=== PATIENT | female | born 1985 | race Two or more races ===

== ENCOUNTER 2019-08-22 12:48 | Inpatient (IN) | payer MEDICAID ==
[~2019-08-22] VITALS: Ht 172.7 cm; Wt 107.0 kg
[~2019-08-22 12:48] MED LIST: MEDR400I IM
[2019-08-22] MEDS ORDERED: SODIUM CHLORIDE 0.9% 500 ML IV ONE (12:53)
[2019-08-22] MEDS ORDERED: MECLIZINE HCL 25 MG TAB PO ONE (13:00)
[2019-08-22 13:35] LABS: Basophils # (auto) 0.1 uL; Basophils % (auto) 0.7 % (0.0-2.0); Eosinophils # (auto) 0.2 uL; Eosinophils % (auto) 2.1 % (0.0-7.0); Hematocrit 43.2 % (36.0-46.0); Hemoglobin 14.7 g/dL (12.2-16.2); Lymphocytes # (auto) 1.4 uL; Lymphocytes % (auto) 12.2 % (10.0-50.0); Mean Corpuscular Hemoglobin 29.6 pg (28.0-32.0); Mean Corpuscular Volume 86.9 fL (80.0-100.0); Monocytes # (auto) 0.6 uL; Monocytes % (auto) 5.3 % (0.0-12.0); Neutrophils % (auto) 79.7 % (37.0-80.0); Nucleated Red Blood Cells % 0.2 %; Platelet Count (auto) 322 10^3/uL (140-450); Red Blood Cells 4.97 10^6/uL (4.0-5.20); Red Cell Distribution Width 13.2 % (11.8-14.3); White Blood Cell 11.3 10^3/uL (4.4-10.8)
[2019-08-22 13:53] LABS: Albumin 3.6 g/dL (3.4-5.0); Anion Gap 10 (5-15); Blood Urea Nitrogen 7 mg/dL (7-18); Calcium 8.5 mg/dL (8.5-10.1); Carbon Dioxide 20 mmol/L (21-32); Chloride 109 mmol/L (98-107); Glucose 140 mg/dL (74-106); Magnesium 1.8 mg/dL (1.6-2.6); Potassium 3.4 mmol/L (3.5-5.1); Sodium 139 mmol/L (136-145)
[2019-08-22 14:02] LABS: Alanine Aminotransferase 23 U/L (13-56); Alkaline Phosphatase 57 U/L (45-117); Aspartate Aminotransferase 18 U/L (15-37); BUN/Creatinine Ratio 7.3; Bilirubin, Total 0.5 mg/dL (0.2-1.0); GFR African American 85 mL/min; GFR Non-African American 70 mL/min; Total Protein 7.7 g/dL (6.4-8.2)
[2019-08-22] MEDS ORDERED: LORazepam 2MG/ML-1ML VIAL IV ONE (15:30)
[2019-08-22] MEDS ORDERED: ONDANSETRON HCL 4 MG/2 ML VIAL ONE (16:40)
[2019-08-22] MEDS ORDERED: ONDANSETRON HCL 4 MG/2 ML VIAL IV ONE (16:45)
[2019-08-22] MEDS ORDERED: SOD CHL 0.9%/ KCL 20MEQ 1,000 ML IV ONE (17:45)
[2019-08-22] MEDS ORDERED: MORPHINE SULF INJ 2 MG/ML SYRINGE 1ML IV PRN ×2 (17:45)
[2019-08-22] MEDS ORDERED: ACETAMINOPHEN 500 MG TAB PO PRN (17:45)
[2019-08-22] MEDS ORDERED: NITROGLYCERIN 0.4 MG SL TAB SL PRN (17:45)
[2019-08-22] MEDS ORDERED: MECLIZINE HCL 25 MG TAB PO PRN (17:45)
[2019-08-22] MEDS ORDERED: HYDROcodone-ACET 5/325MG TAB PO PRN (17:45)
[2019-08-22] MEDS ORDERED: ONDANSETRON HCL 4 MG/2 ML VIAL IV PRN (17:45)
--- NOTE | 2019-08-22 18:28 | NUR ---
Telemetry admit from GURINDER PARRY admitted to Telemetry unit after SBAR received. Patient oriented to Pam Nolasco primary RN, unit, room, bed, and unit policies regarding patient care and visiting hours. Patient now on continuous telemetry monitoring. Patient weighed by bed scale and encouraged to call if they need something. All questions and concerns addressed, patient verbalized understanding. Instructed patient on POC, fall precautions and to call for assistance as needed. Patient verbalized understanding. Fall precautions in place with bed in lowest locked position with call light within reach.
--- NOTE | 2019-08-22 19:03 | NUR ---
Closing note Patient resting in bed with even and unlabored respirations, no distress noted. Fall precautions in place with bed in lowest locked position with call light within reach. Bed alarm on for safety.
--- NOTE | 2019-08-22 19:15 | NUR ---
Care endorsed to MINA Person.
--- NOTE | 2019-08-22 19:25 | NUR ---
RECEIVED PATIENT, AWAKE, ALERT, ORIENTED X4. NO S/S OF RESPIRATORY DISTRESS, DENIES ANY PAIN. ORIENTED ON PLAN OF CARE. BED IS LOCKED AND IN LOWEST POSITION, SIDE RAILS UP X2, CALL LIGHT WITHIN REACH. WILL CONTINUE TO MONITOR
[2019-08-22 19:30] VITALS: BP 132/81
[2019-08-22 19:33] LABS: Urine Bacteria MOD /hpf (None Seen); Urine Blood Negative /uL (Negative); Urine Mucus FEW (None Seen); Urine Specific Gravity 1.017 (1.001-1.035); Urine WBC 1 /hpf (0 - 5)
[2019-08-22] MEDS ORDERED: LORazepam 2MG/ML-1ML VIAL IV PRN (20:00)
[2019-08-22] MEDS ORDERED: LORazepam 0.5 MG TAB PO PRN (20:00)
[2019-08-22 22:00] VITALS: BP 134/85
[2019-08-23 05:00] VITALS: BP 116/63
--- NOTE | 2019-08-23 07:05 | NUR ---
Opening Shift Note Assumed care of patient, awake and alert. No S/S of distress/SOB or pain. Instructed on POC and to call for assist PRN, will continue to monitor for changes Q1hr and PRN. Bed in lowest locked position, call light within reach.
--- NOTE | 2019-08-23 07:15 | NUR ---
CARE ENDORSED TO AM SHIFT RN
[2019-08-23 08:02] VITALS: BP 126/73
[2019-08-23 09:00] VITALS: BP 126/73
[2019-08-23] MEDS ORDERED: INFLUENZA QUAD 2019-2020 0.5ml SYRG IM ONE (09:00)
--- NOTE | 2019-08-23 09:34 | NUR ---
meteorological technician at bedside
[2019-08-23 13:00] VITALS: BP 117/74
[2019-08-23] MEDS ORDERED: ASPirin-EC 81 mg tab PO ONE (14:15)
[2019-08-23] MEDS ORDERED: MAGNESIUM SULFATE 1GM/100ML 100 ML IV ONE (14:15)
--- NOTE | 2019-08-23 14:21 | NUR ---
RE: MRI results This RN was verbally notified by Dr. Russell of the patient's MRI results positive for an acute stroke. informed this RN that Dr. Grigsby was notified by her. Orders received and read back to verify. Dr. Russell informed patient of MRI results.
--- NOTE | 2019-08-23 14:37 | NUR ---
US tech at bedside for carotid US per MD order.
[2019-08-23 16:58] VITALS: BP 119/67
--- NOTE | 2019-08-23 18:43 | NUR ---
Closing note patient resting in bed with even and unlabored respirations, no distress noted. Speech is clear. Facial features are even with no drooping noted. Bilateral upper and lower extremity strength equal, mild weakness noted. Fall precautions in place with bed in lowest locked position, call light within reach. Visitors at bedside.
--- NOTE | 2019-08-23 19:05 | NUR ---
Care endorsed to MINA Person.
[2019-08-23 19:47] LABS: CRP High Sensitivity 0.16 mg/dL (< 0.3)
[2019-08-23 20:19] LABS: Alcohol, Urine < 3.0 mg/dL (0-5); Amphetamine Screen, Urine NEGATIVE (NEGATIVE); Barbiturate Scree,Urine NEGATIVE (NEGATIVE); Benzodiazephine Screen, Urine NEGATIVE (NEGATIVE); Cannabinoid Screen, Urine NEGATIVE (NEGATIVE); Cocaine Screen, Urine NEGATIVE (NEGATIVE); Opiate Scree,Urine NEGATIVE (NEGATIVE); Phencyclidine Screen, Urine NEGATIVE (NEGATIVE)
[2019-08-23] MEDS: ATORVASTATIN 20 MG TAB PO SCH (21:39)
[2019-08-24 05:00] VITALS: BP_SYST 117; BP_SYST 123; BP_DIAS 40; BP_DIAS 79
[2019-08-24 07:06] LABS: Basophils # (auto) 0.1 uL; Basophils % (auto) 0.7 % (0.0-2.0); Eosinophils # (auto) 0.2 uL; Eosinophils % (auto) 1.7 % (0.0-7.0); Hematocrit 42.7 % (36.0-46.0); Hemoglobin 14.6 g/dL (12.2-16.2); Lymphocytes # (auto) 1.8 uL; Lymphocytes % (auto) 17.2 % (10.0-50.0); Mean Corpuscular Hgb Conc. 34.1 g/dL (32.0-36.0); Monocytes # (auto) 0.8 uL; Monocytes % (auto) 7.5 % (0.0-12.0); Neutrophils # (auto) 7.8 uL; Neutrophils % (auto) 72.9 % (37.0-80.0); Nucleated Red Blood Cells % 0.1 %; Platelet Count (auto) 307 10^3/uL (140-450); Red Blood Cells 4.85 10^6/uL (4.0-5.20); Red Cell Distribution Width 13.4 % (11.8-14.3); White Blood Cell 10.7 10^3/uL (4.4-10.8)
--- NOTE | 2019-08-24 07:15 | NUR ---
CARE ENDORSED TO AM SHIFT RN
[2019-08-24 07:23] LABS: BUN/Creatinine Ratio 13.5; Calcium 8.7 mg/dL (8.5-10.1); Magnesium 2.3 mg/dL (1.6-2.6); Potassium 3.8 mmol/L (3.5-5.1)
[2019-08-24 07:58] LABS: INR 1.02 (0.9-1.15); Partial Thromboplastin Time 24.2 sec (23.64-32.05)
[2019-08-24 08:58] VITALS: BP 125/75
--- NOTE | 2019-08-24 09:00 | NUR ---
PT AMBULATED TO RESTROOM WITH . PT TOLERATED ACTIVITY FAIRLY.
--- NOTE | 2019-08-24 09:31 | NUR ---
assessment Patient is a 34 year old female who is alert and oriented. Patients cognitive abilities are intact. Prior to admission patient lived home with family and functioned independently. Patient informed me she is able to care for her own ADLs. Per patient she will return home to her prior living arrangements post discharge and family will transport her home. Patient has been admitted for CVA. Patient is having right side weakness. Patient has no DME at home. Patient will benefit from home health for PT and a fww. Patient is aware of her diagnosis. Patient is in good spirits. Patient has good family and social support. I informed patient she has a right to speak to a clinical social work therapist regarding all care. I informed patient she has a right to participate in any and all discharge planning. Patient does not have a POA and advanced directive. I have offered patient information on POA and advanced directives. I informed the patient the advantages and benefits of having an Advanced Directive. Patient verbalized understanding and agreed to discharge plan. Addendum: 08/25/19 at 0933 by Sarah SHEFFIELD Amended: Links added.
--- NOTE | 2019-08-24 09:44 | NUR ---
PT TAKEN TO ELECTRIFIER OPERATOR FOR PROCEDURE. NO S/S OF DISTRESS.
[2019-08-24] MEDS ORDERED: fentaNYL CITRATE 100 MCG/2 ML VL IV ONE (10:00)
[2019-08-24] MEDS ORDERED: MIDAZOLAM HCL 1MG/1ML-2 ML VIAL IV ONE (10:00)
[2019-08-24] MEDS ORDERED: LIDOCAINE VISCOUS 2% 15ML UD MT PRN (10:00)
--- NOTE | 2019-08-24 11:28 | NUR ---
PT BACK FROM LEGAL INVESTIGATOR, VIA BED. AWAKE, ALERT, NO S/S OF DISTRESS AT MOMENT. V/S: 97.6; 84; 18; 95% ON ROOM AIR,; 99/41 (67) ASYMPTOMATIC. PT REMAINS WITH SLIGHT DIZZINESS.
[2019-08-24] MEDS: ASPirin-EC 81 mg tab PO SCH (12:54)
[2019-08-24 13:00] VITALS: BP 128/75
[2019-08-24 16:58] VITALS: BP 128/83
--- NOTE | 2019-08-24 19:29 | NUR ---
Opening Shift Note Received report from day shift nurseScott. Patient awake, alert, and orientated x 4 with No S/S of distress/SOB or pain. family is at bedside. Instructed on POC and to call for assist PRN, will continue to monitor for changes Q1hr and PRN.
[2019-08-24] MEDS: SODIUM CHLORIDE 0.9% 1,000 ML IV SCH (21:45)
[2019-08-24 21:53] VITALS: BP 112/61
[2019-08-24] MEDS: ATORVASTATIN 20 MG TAB PO SCH (22:33)
[2019-08-25 05:29] VITALS: BP 105/60
--- NOTE | 2019-08-25 07:24 | NUR ---
closing notes endorsed care to day shift nurseYu.
--- NOTE | 2019-08-25 08:00 | NUR ---
Opening Shift Note Assumed care of patient, awake and alert sitting out in chair at bedside. No S/S of distress/SOB or pain. Instructed on POC and to call for assist PRN, will continue to monitor for changes Q1hr and PRN.
[2019-08-25 09:00] VITALS: BP 109/66
[2019-08-25] MEDS: SODIUM CHLORIDE 0.9% 1,000 ML IV SCH (09:48)
[2019-08-25] MEDS: ASPirin-EC 81 mg tab PO SCH (09:48)
--- NOTE | 2019-08-25 10:48 | NUR ---
Off Unit Patient left unit in wheelchair for Radiology department.
--- NOTE | 2019-08-25 11:03 | NUR ---
On Unit Patient returned to unit from radiology department.
[2019-08-25 13:00] VITALS: BP 110/67
[2019-08-25] MEDS ORDERED: ATO40T PO (13:29)
[2019-08-25] MEDS ORDERED: ASPI-378 PO (13:29)
[2019-08-25 14:45] VITALS: BP 110/67
--- NOTE | 2019-08-25 15:33 | NUR ---
Patient is discharged, awaiting on DME - Walker to be delivered at bedside.
--- NOTE | 2019-08-25 15:56 | NUR ---
D/C Planning Per Consult for Home Health for Physical Therapy and FWW. Contacted [facility] Ph:( [phone]) Fax:) faxed medical records. Per Kate from [facility] Pt has been accepted and service to start within 48hrs upon d/c day. . Contacted [facility] Ph:) Fax:) faxed medical records. Per Holly from [facility] authorization for home health is [id number] and for [facility] is [id number]. Contacted [facility] Ph:) Fax:) faxed medical records. Per Elba from [facility] referral has been received and FWW will be deliver to bedside at 17:00. Informed MINA Nicholas. Pt was given information regarding acceptance home health agency and FWW. Pt verbalize understanding d/c plan. Addendum: 08/25/19 at 1614 by CARLENE INGRAM Amended: Links added.
[2019-08-25 17:00] VITALS: BP 137/86
--- NOTE | 2019-08-25 17:15 | NUR ---
As per Rudy from [facility], front wheel walker will be delivered to patient's home this evening.
--- NOTE | 2019-08-25 18:00 | NUR ---
Sick Note Patient requesting sick note from work. Informed her that the hospitalist already left for today. She will call 08/26 to see if she can get note from hospitalist.
--- NOTE | 2019-08-25 18:05 | NUR ---
Discharge instructions given as ordered. Encourage to follow up with PMD as instructed. All questions and concerns addressed. Patient verbalized understanding. Medication reconciliation form completed and copy given to patient. IV removed with catheter intact and pressure dressing applied. Telemetry unit returned to ICU. Patient taken to vehicle via wheelchair with all personal belongings, accompanied by staff and family member. No distress noted at time of departure.
== END 2019-08-25 18:05 | disposition home health service (06) | DRG 45 ==
LOC: EDBD 12:48 → ER 12:50 → TELE 12:51 → TELE-CENTR 18:28
PROVIDERS: ADMIT Nurse Practitioner Acute Care; ATTEND Internal Medicine
PROC: B24BZZ4 Ultrasonography of Heart with Aorta, Transesophageal (ICD-10-PCS; principal; 2019-08-24)
DX: I63.541 Cerebral infarction due to unspecified occlusion or stenosis of right cerebellar artery (principal); R65.10 Systemic inflammatory response syndrome (SIRS) of non-infectious origin without acute organ dysfunction; E66.01 Morbid (severe) obesity due to excess calories; G81.94 Hemiplegia, unspecified affecting left nondominant side; R55 Syncope and collapse; E87.6 Hypokalemia; E78.5 Hyperlipidemia, unspecified; F41.9 Anxiety disorder, unspecified; Z80.6 Family history of leukemia; Z82.3 Family history of stroke; Z82.49 Family history of ischemic heart disease and other diseases of the circulatory system; Z90.710 Acquired absence of both cervix and uterus; Z83.3 Family history of diabetes mellitus; Z68.35 Body mass index [BMI] 35.0-35.9, adult
CPT/HCPCS: 36415; 70450; 70496; 70498; 70551; 80048; 80053; 80061; 80307; 81001; 81241; 83036; 83735; 84443; 84484; 85025; 85301; 85305; 85306; 85610; 85613; 85652; 85670; 85705; 85730; 85732; 86141; 93005; 93306; 93312; 93886; 93970; 94761; 96361; 96374; 96375; 99152; G0378; J2250; J2405

== ENCOUNTER 2025-05-04 15:09 | Emergency (ER) | payer MEDICAID ==
[~2025-05-04] VITALS: Ht 172.7 cm; Wt 110.6 kg
[~2025-05-04 15:09] MED LIST changes: +ASPI-378 PO; +ATOR-507 PO; -MEDR400I IM
--- NOTE | 2025-05-04 15:36 | ED.PDOC ---
History of Present Illness HPI Comments 39 y/o morbidly obese F, presents to the ED for CC of left sided breast/chest pain. Patient states, she has been experiencing left sided breast/chest pain with an associated burning sensation x4days. Patient reports, being seen at [facility] and being departed with no significant findings. Patient denies any imaging study being performed. Patient denies injury, lifting, shortness ofd breath, or palpitations. No other symptoms or modifying factors present at this time. Vital signs were stable at arrival. Chief Complaint: Breast pain Time Seen by MD: 15:30 Primary Care Provider: UNKNOWN Reviewed Notes: Nurses Notes, Medications, Allergies Allergies: Coded Allergies: NO KNOWN ALLERGIES (Unverified , 01/11/15) Home Meds Active Scripts Atorvastatin Calcium (Lipitor) 40 Mg Tab, 1 TAB PO DAILY, #30 TAB Prov:NAVI REEVES MD 08/25/19 Aspirin (CALIN ASPIRIN EC LOW DOSE) 81 Mg Tab, 1 TAB PO DAILY, #30 TAB Prov:NAVI REEVES MD 08/25/19 Information Source: Patient Mode of Arrival: Ambulatory Severity: Moderate Timing: Days Duration: Since onset Prehospital treatment: None Past Medical History PAST MEDICAL HISTORY: Anxiety, CVA, Depression Surgical History: Cholecystectomy, Hysterectomy SENIOR NETWORK ARCHITECT History: No Pertinent SENIOR NETWORK ARCHITECT History Family History Family History: No family hx of Cancer, No family hx of DM Social History Smoker: Non-Smoker Alcohol: Denies ETOH Use Drugs: Denies Drug Use Lives In: Home Constitutional: denies: chills, diaphoresis, fatigue, fever, malaise, sweats, weakness, others EENTM: denies: blurred vision, double vision, ear bleeding, ear discharge, ear drainage, ear pain, ear ringing, eye pain, eye redness, hearing loss, mouth pain, mouth swelling, nasal discharge, nose bleeding, nose congestion, nose pain, photophobia, tearing, throat pain, throat swelling, voice changes, others Respiratory: denies: cough, hemoptysis, orthopnea, SOB at rest, shortness of breath, SOB with excertion, stridor, wheezing, others Cardiovascular: reports: chest pain (Left-sided breast/chest pain); denies: dizzy spells, diaphoresis, Dyspnea on exertion, edema, irregular heart beat, left arm pain, lightheadedness, palpitations, PND, syncope, others Gastrointestinal: denies: abdomen distended, abdominal pain, blood streaked bowels, constipated, diarrhea, dysphagia, difficulty swallowing, hematemesis, melena, nausea, poor appetite, poor fluid intake, rectal bleeding, rectal pain, vomiting, others Genitourinary: denies: abnormal vagina bleeding, burning, dyspareunia, dysuria, flank pain, frequency, hematuria, incontinence, pain, , vagina discharge, urgency, others Neurological: denies: dizziness, fainting, headache, left sided numbness, left sided weakness, numbness, paresthesia, pre-existing deficit, right sided numbness, right sided weakness, seizure, speech problems, tingling, tremors, weakness, others Musculoskeletal: denies: back pain, gout, joint pain, joint swelling, muscle pain, muscle stiffness, neck pain, others Integumetry: reports: others (LEFT BREAST PAIN); denies: bruises, change in color, change in hair/nails, dryness, laceration, lesions, lumps, rash, wounds Allergic/Immunocompromised: denies: Difficulty Healing, Frequent Infections, Hives, Itching, others Hematologic/Lymphatic: denies: anemia, blood clots, easy bleeding, easy bruising, swollen glands, others Endocrine: denies: excessive hunger, excessive sweating, excessive thirst, excessive urination, flushing, intolerance to cold, intolerance to heat, unexplained weight gain, unexplained weight loss, others Psychiatric: denies: anxiety, bipolar disorder, depression, hopeless, panic disorder, schizophrenia, sleepless, suicidal, others All Other Systems: Reviewed and Negative Physical Exam General Appearance: Moderate Distress ([id number]-[id number] distress due to left- sided chest pain concerns.), Obese HEENT: Normal ENT Inspection, Pharynx Normal, TMs Normal Neck: Full Range of Motion, Non-Tender, Normal, Normal Inspection Respiratory: Chest Non-Tender, Lungs Clear, No Accessory Muscle Use, No Respiratory Distress, Normal Breath Sounds Cardiovascular: No Edema, No JVD, No Murmur, No Gallop, Normal Peripheral Pulses, Regular Rate/Rhythm Breast Exam: Other (Left-sided breast exam was unremarkable. No masses noted. No pain on palpation.) Gastrointestinal: No Organomegaly, Non Tender, No Pulsatile Mass, Normal Bowel Sounds, Soft Genitalia: Deferred Pelvic: Deferred Rectal: Deferred Extremities: No calf tenderness, Normal capillary refill, Normal inspection, Normal range of motion, Non-tender, No pedal edema Neurologic: Alert, No Motor Deficits, Normal Affect, Normal Mood, No Sensory Deficits Cerebellar Function: Normal Reflexes: Normal Skin: Dry, Normal Color, Warm Lymphatic: No Adenopathy Was a procedure done? Was a procedure done?: No Differential Dx Considerations may include: Intrapulmonary neoplasm, chest pain, anxiety, breast mass, sepsis, electrolyte abnormality X-Ray, Labs, Meds, VS Vital Signs Date Time Temp Pulse Resp B/P (MAP) Pulse Ox O2 Delivery O2 Flow Rate FiO2 05/04/25 15:28 98.1 95 18 128/76 (93) 99 98.1 Lab Test 05/04/25 15:35 Range/Units White Blood Count 10.6 4.4-10.8 10^3/uL Red Blood Count 5.05 4.0-5.20 10^6/uL Hemoglobin 15.2 12.2-16.2 g/dL Hematocrit 43.4 36.0-46.0 % Mean Corpuscular Volume 86.0 80.0-100.0 fL Mean Corpuscular Hemoglobin 30.1 28.0-32.0 pg Mean Corpuscular Hemoglobin Concent 35.0 32.0-36.0 g/dL Red Cell Distribution Width 13.0 11.8-14.3 % Platelet Count 373 140-450 10^3/uL Mean Platelet Volume 6.9 6.9-10.8 fL Neutrophils (%) (Auto) 67.6 37.0-80.0 % Lymphocytes (%) (Auto) 20.6 10.0-50.0 % Monocytes (%) (Auto) 7.9 0.0-12.0 % Eosinophils (%) (Auto) 2.7 0.0-7.0 % Basophils (%) (Auto) 1.2 0.0-2.0 % Neutrophils # (Auto) 7.2 1.6-8.6 10 ^3/uL Lymphocytes # (Auto) 2.2 0.4-5.4 10 ^3/uL Monocytes # (Auto) 0.8 0-1.3 10 ^3/uL Eosinophils # (Auto) 0.3 0-0.8 10 ^3/uL Basophils # (Auto) 0.1 0-0.2 10 ^3/uL Nucleated Red Blood Cells 0.2 % Sodium Level 141 136-145 mmol/L Potassium Level 4.2 3.5-5.1 mmol/L Chloride Level 106 98-107 mmol/L Carbon Dioxide Level 26 20-31 mmol/L Anion Gap 9 5-15 Blood Urea Nitrogen 10 9-23 mg/dL Creatinine 1.05 H 0.550-1.02 mg/dL Glomerular Filtration Rate Calc 68 >90 mL/min BUN/Creatinine Ratio 9.5 L 10.0-20.0 Serum Glucose 92 74-106 mg/dL Calcium Level 9.6 8.7-10.4 mg/dL Troponin I High Sensitivity < 3 L </=34 ng/L Lipase 45 12-53 U/L [place] [address] Ph: [phone] DIAGNOSTIC IMAGING Diagnostic Imaging Report : [id number] Signed PATIENT: GURINDER BHATTI ACCT: [id number] UNIT: [id number] : 1985 LOC: ER ROOM / BED: / AGE / SEX: 39 / F ADM STATUS: REG ER SERVICE 1529 ORDERING PHYSICIAN: TAMAR PITTS PAC PROCEDURE(s): CX2CT - CHEST WITHOUT CONTRAST REASON: Diffuse left-sided chest pain ORDER NUMBER(s): [id number], ACCESSION NUMBER(s): [id number] Procedure: CT CHEST WITHOUT CONTRAST Reason for study/Clinical History: Diffuse left-sided chest pain Comparison Study: None Exam Date: 05/04/2025 03:32 PM TECHNIQUE: Multidetector CT of the chest was performed from the lung apices to the upper abdomen without the use of intravenous contract. Axial, coronal and sagittal multiplanar reformats were performed. Radiation Dose Information: CT Dose: CTDI volume is 21.51 mGy. Dose-length product is 784.94 mGy*cm The dose indicators for CT are the volume Computed Tomography (CT) Dose Index (CTDIvol) and the Dose Length Product (DLP), and are measured in units of mGy and mGy-cm, respectively. These indicators are not patient dose, but values generated from the CT scanner acquisition factors. The report includes radiation exposure data for exposures received during this examination. FINDINGS: Lower neck: Normal thyroid. Lungs: No focal consolidation, pleural effusion or pneumothorax. Heart/Vascular Structures: Normal heart size. No pericardial effusion. Lymph Nodes: No adenopathy Pleura: No pleural effusion or significant pneumothorax. Musculoskeletal: No acute osseous abnormality. Soft tissues: Normal. Upper abdomen: Limited portions of the upper abdomen are unremarkable. IMPRESSION: 1. No displaced rib fractures. 2. No pleural thickening no pleural effusions no pneumothorax. 3. No pulmonary airspace disease. 4. No pulmonary masses or nodules. Radiation optimization: All CT scans at this facility use at least one of these dose optimization techniques: automated exposure control mA and/or kV adj ustment per patient size (includes targeted exams where dose is matched to clinical indication) or iterative reconstruction. ATED BY: DEA LOCKWOOD Jr., DO DICTATED DATE/TIME: 05/04/251602 SIGNED BY: DEA LOCKWOOD Jr., SIGNED DATE/TIME: 05/04/25 160 CC: X-Ray, Labs, Meds, VS Comment All studies performed the ED were evaluated by me personally. Serum laboratories were unremarkable for any systemic concerns including unremarkable cardiac markers. EKG revealed a sinus rhythm with a rate of 86. [place] interval 131 and QT interval of 369. CT of the chest was unremarkable for any intrapulmonary masses or noted neoplasms. Advised patient to follow up with the primary care provider for continued evaluation and management. Patient may require a mammogram for detailed evaluation of breast, but patient's pain concerns do not seem to be related to breast issues. Patient's chest pain issues may be anxiety related. Time of 1ST Reevaluation: 16:30 Reevaluation 1ST: Improved Consultation: PCP, Psychiatry Patient Education/Counseling: Diagnosis, Treatment Family Education/Counseling: Diagnosis, Treatment, No Family Present SEPSIS Sepsis Screen Recent Procedure: No On Antibiotic Therapy: No Respiratory Rate >20: No Heart Rate >90: No Temp<36 C (96.8 F) or >38.3 C: No SBP <90 or MAP <65 mmHG: No New Acute Mental Status Change: No Is the patient on CPAP, BIPAP,: No Physician Orders Electrocardigram (05/04/25 15:29) Chest Without Contrast (05/04/25 15:29) Vital Signs Date Time Temp Pulse Resp B/P (MAP) Pulse Ox O2 Delivery O2 Flow Rate FiO2 05/04/25 15:28 98.1 95 18 128/76 (93) 99 98.1 Laboratory Tests Test 05/04/25 15:35 White Blood Count 10.6 10^3/uL (4.4-10.8) Departure 1 Departure Time of Disposition: 16:31 Impression: Primary Impression: Chest pain Disposition: HOME / SELF CARE / HOMELESS Condition: Stable Additional Instructions: Advised patient follow up with the primary care provider for conversation is related to today's visit and concerns about continuing chest pain related issues. Discharged With: Self, Friend Critical Care Note Critical Care Time?: No Stability Stability form required: No Heart Score Heart Score: Heart Score Response (Comments) Value History N/A 0 EKG N/A 0 Age N/A 0 Risk Factors N/A 0 Troponin N/A 0 Total 0 I personally scribed for TAMAR PITTS PAC ([email or web address]) on 05/04/25 at 15:36. Electronically submitted by Tania Hirsch ([email or web address]). I personally scribed for TAMAR PITTS PAC ([email or web address]) on 05/04/25 at 16:17. Electronically submitted by Tania Hirsch ([email or web address]). TAMAR PITTS PAC May 04, 2025 15:36
[2025-05-04 15:42] LABS: Basophils # (auto) 0.1 10 ^3/uL (0-0.2); Basophils % (auto) 1.2 % (0.0-2.0); Eosinophils # (auto) 0.3 10 ^3/uL (0-0.8); Eosinophils % (auto) 2.7 % (0.0-7.0); Hematocrit 43.4 % (36.0-46.0); Hemoglobin 15.2 g/dL (12.2-16.2); Lymphocytes # (auto) 2.2 10 ^3/uL (0.4-5.4); Lymphocytes % (auto) 20.6 % (10.0-50.0); Mean Corpuscular Hemoglobin 30.1 pg (28.0-32.0); Monocytes # (auto) 0.8 10 ^3/uL (0-1.3); Monocytes % (auto) 7.9 % (0.0-12.0); Neutrophils # (auto) 7.2 10 ^3/uL (1.6-8.6); Neutrophils % (auto) 67.6 % (37.0-80.0); Nucleated Red Blood Cells % 0.2 %; Platelet Count (auto) 373 10^3/uL (140-450); Red Blood Cells 5.05 10^6/uL (4.0-5.20); White Blood Cell 10.6 10^3/uL (4.4-10.8)
[2025-05-04 15:51] LABS: Chloride 106 mmol/L (98-107); Potassium 4.2 mmol/L (3.5-5.1); Sodium 141 mmol/L (136-145)
[2025-05-04 15:52] LABS: Anion Gap 9 (5-15); Calcium 9.6 mg/dL (8.7-10.4); Carbon Dioxide 26 mmol/L (20-31)
[2025-05-04 15:57] LABS: BUN/Creatinine Ratio 9.5 (10.0-20.0); Blood Urea Nitrogen 10 mg/dL (9-23); Glucose 92 mg/dL (74-106); Lipase 45 U/L (12-53)
--- NOTE | 2025-05-04 16:05 | DVH ---
Procedure: CT CHEST WITHOUT CONTRAST Reason for study/Clinical History: Diffuse left-sided chest pain Comparison Study: None Exam Date: 05/04/2025 03:32 PM TECHNIQUE: Multidetector CT of the chest was performed from the lung apices to the upper abdomen with out the use of intravenous contract. Axial, coronal and sagittal multiplanar reformats were performed . Radiation Dose Information: CT Dose: CTDI volume is 21.51 mGy. Dose-length product is 784.94 mGy*cm The dose indicators for CT are the volume Computed Tomography (CT) Dose Index (CTDIvol) and the Dose Length Product (DLP), and are measured in units of mGy and mGy-cm, respectively. These indicators are not patient dose, but values generated from the CT scanner acquisition factors. The report includes radiation exposure data for exposures received during this examination. FINDINGS: Lower neck: Normal thyroid. Lungs: No focal consolidation, pleural effusion or pneumothorax. Heart/Vascular Structures: Normal heart size. No pericardial effusion. Lymph Nodes: No adenopathy Pleura: No pleural effusion or significant pneumothorax. Musculoskeletal: No acute osseous abnormality. Soft tissues: Normal. Upper abdomen: Limited portions of the upper abdomen are unremarkable. IMPRESSION: 1. No displaced rib fractures. 2. No pleural thickening no pleural effusions no pneumothorax. 3. No pulmonary airspace disease. 4. No pulmonary masses or nodules. Radiation optimization: All CT scans at this facility use at least one of these dose optimization norman hniques: automated exposure control mA and/or kV adjustment per patient size (includes targeted exam s where dose is matched to clinical indication) or iterative reconstruction.
[2025-05-04 17:20] VITALS: BP 143/82; PULSE 86; RESP 18; TEMP 98.4; O2SAT 98
--- NOTE | 2025-05-06 11:03 | ECG ---
[facility] Test Date: 2025-05-04 Test Time: 16:27:57 Pat Name: GURINDER BHATTI Department: ER Room: Gender: F Business Education Instructor: : 1985 Requested By: TAMAR PITTS Order Number: [id number] Reading MD: Froilan Gloria Measurements Intervals [place] Rate: 86 P: 12 UT: 131 QRS: 35 QRSD: 95 T: 34 QT: 369 QTc: 442 Interpretive Statements Sinus rhythm Electronically Signed On 05-06-2025 20:08:26 PDT by Froilan Gloria Please click the below link to view image of tracing.
== END 2025-05-04 17:48 | disposition home or self-care (01) ==
LOC: ER 15:09
DX: R07.89 Other chest pain (principal); F41.9 Anxiety disorder, unspecified; F32.A Depression, unspecified; Z79.82 Long term (current) use of aspirin; Z79.899 Other long term (current) drug therapy; Z86.73 Personal history of transient ischemic attack (TIA), and cerebral infarction without residual deficits; Z90.49 Acquired absence of other specified parts of digestive tract; Z90.710 Acquired absence of both cervix and uterus
CPT/HCPCS: 36415; 71250; 80048; 83690; 84484; 85025; 93005